=== PATIENT | male | born 1960 | race African-American/Black ===

== ENCOUNTER 2016-08-30 23:29 | Emergency (ER) | payer OTHER, BC ==
[~2016-08-30] VITALS: Ht 170.2 cm; Wt 113.4 kg
[2016-08-31 00:05] VITALS: BP 147/87
[2016-08-31] MEDS ORDERED: PRED50TA PO (00:54)
[2016-08-31] MEDS ORDERED: PROAIR RESPICL90 MCG IH (00:54)
[2016-08-31] MEDS ORDERED: AZIT250T PO (00:54)
[2016-08-31] MEDS ORDERED: HYDR115S2 PO (00:55)
--- NOTE | 2016-08-31 00:55 | PHYS DOC ---
Past Medical History Past Medical History: No Pertinent History Past Surgical History: No Surgical History Alcohol Use: None Drug Use: None Adult General Chief Complaint Chief Complaint: COUGH HPI HPI Patient is a 56 year old male with history of hypertension who presents today with a productive cough and nasal congestion for one week. Patient denies any fevers. PCP Review of Systems Review of Systems Constitutional: See history of present illness Eyes: Denies change in visual acuity, redness, or eye pain [] HENT: nasal congestion Respiratory: cough Cardiovascular: No additional information not addressed in HPI [] GI: Denies abdominal pain, nausea, vomiting, bloody stools or diarrhea [] : Denies dysuria or hematuria [] Musculoskeletal: Denies back pain or joint pain [] Integument: Denies rash or skin lesions [] Neurologic: Denies headache, focal weakness or sensory changes [] Endocrine: Denies polyuria or polydipsia [] Allergies Allergies Allergies Coded Allergies Type Severity Reaction Last Updated Verified No Known Drug Allergies 08/31/16 No Physical Exam Physical Exam Constitutional: Well developed, well nourished, no acute distress, non-toxic appearance. [] HENT: Normocephalic, atraumatic, bilateral external ears normal, oropharynx moist, no oral exudates, patient sounds congested nasally Eyes: PERRLA, EOMI, conjunctiva normal, no discharge. [] Neck: Normal range of motion, no tenderness, supple, no stridor. [] Cardiovascular:Heart rate regular rhythm, no murmur [] Lungs & Thorax: Bilateral breath sounds clear to auscultation [] Abdomen: Bowel sounds normal, soft, no tenderness, no masses, no pulsatile masses. [] Skin: Warm, dry, no erythema, no rash. [] Back: No tenderness, no CVA tenderness. [] Extremities: No tenderness, no cyanosis, no clubbing, ROM intact, no edema. [] Neurologic: Alert and oriented X 3, normal motor function, normal sensory function, no focal deficits noted. [] Psychologic: Affect normal, judgement normal, mood normal. [] Current Patient Data Vital Signs Vital Signs Date Time Temp Pulse Resp B/P (MAP) Pulse Ox O2 Delivery O2 Flow Rate FiO2 08/31/16 00:05 99.1 72 20 97 Room Air 99.1 EKG EKG [] Radiology/Procedures Radiology/Procedures [] Course & Med Decision Making Course & Med Decision Making Pertinent Labs and Imaging studies reviewed. (See chart for details) Patient is in the ED with a productive cough and nasal congestion for one week. Chest x-ray interpreted by is negative for any acute findings. He was discharged with azithromycin, prednisone for 5 days, albuterol, and Tussinex. Follow-up with primary care doctor in one week. Dragon Disclaimer Dragon Disclaimer This electronic medical record was generated, in whole or in part, using a voice recognition dictation system. Departure Departure Impression: Primary Impression: Acute bronchitis Additional Impression: Upper respiratory infection Disposition: HOME, SELF-CARE Condition: STABLE Referrals: GRABIEL SANCHEZ MD (PCP) Follow-up with your doctor in 1-2 weeks Patient Instructions: Acute Bronchitis, [id number], Upper Respiratory Infection, Adult Additional Instructions: You were treated for bronchitis in the ED. Follow-up with your primary care doctor in one week. Ensure you complete antibiotics, come back to the ED if symptoms worsen. Scripts Hydrocodone/Chlorphen Polis (TUSSIONEX PENNKINETIC SUSP) 480 Ml Kymberly.er.12h 5 ML PO BID, #100 ML Prov: ASIA BHAKTA APRN 08/31/16 Albuterol Sulfate (Proair Respiclick) 90 Mcg Aer.pow.ba 1 PUFF IH PRN Q6HRS Y for SHORTNESS OF BREATH, #1 INHALER Prov: ASIA BHAKTA APRN 08/31/16 Prednisone (PREDNISONE) 50 Mg Tablet 1 TAB PO DAILY, #5 TAB Prov: ASIA BHAKTA APRN 08/31/16 Azithromycin (ZITHROMAX) 250 Mg Tablet 1 PKG PO UD, #1 PKG Prov: ASIA BHAKTA APRN 08/31/16 Problem Qualifiers Primary Impression: Acute bronchitis Bronchitis organism: unspecified organism Qualified Codes: J20.9 - Acute bronchitis, unspecified Additional Impression: Upper respiratory infection URI type: unspecified URI Qualified Codes: J06.9 - Acute upper respiratory infection, unspecified ASIA BHAKTA APRN August 31, 2016 00:55
--- NOTE | 2016-08-31 07:10 | RAD ---
Chest, 2 views, 08/31/2016: History: Cough Comparison is made to a study from 09/20/2010. The heart size and pulmonary vascularity are normal. No pulmonary infiltrates are seen. There is no evidence of pleural fluid. IMPRESSION: No acute cardiopulmonary abnormality is detected.
== END 2016-08-31 00:55 | disposition home or self-care (01) ==
LOC: ER 23:29
DX: J20.9 Acute bronchitis, unspecified (principal); J06.9 Acute upper respiratory infection, unspecified; I10 Essential (primary) hypertension
CPT/HCPCS: 71020; 99284-25